=== PATIENT | female | born 1970 | race Caucasian/White ===

== ENCOUNTER 2024-06-21 06:51 | Day surgery (SDC) | payer OTHER, SELFPAY ==
[2024-06-11 13:25] VITALS: BMI 28.1
[2024-06-21] VITALS (11 sets, daily range): BP systolic 110–148; BP diastolic 53–97; BMI 28.1
[2024-06-21] MEDS: NORMOSOL-R 1000 IV (08:56)
[2024-06-21] MEDS: TYLENOL 1000 MG PO (08:56)
--- NOTE | 2024-06-21 10:43 | OR.RPT ---
Operative Report
Operative Report
Primary Surgeon: Kenneth
Assisting: Angelito BLACKMAN
Pre-op Diagnosis: Biliary colic
Post-op Diagnosis: Same
Procedure Performed: Robot assisted laparoscopic cholecystectomy
Anesthesia Type: GETA
Specimen / Cultures: Gallbladder
Estimated Blood Loss: 3cc
Complications: None immediate
Operative Findings: Floppy gallbladder with mild posterior fibrosis; cystic artery: bipolar / cystic duct: double wecks clips; critical view obtained
Date of Surgery:� 06/21/24
Indications: This 54F developed biliary colic with normal liver enzymes and without ductal dilation. Laparoscopic cholecystectomy with robotic assist was elected.
Description of procedure: The patient was placed on the operating table in the supine position. General anesthesia was induced. A time-out was completed verifying correct patient, procedure, site, positioning, and special equipment prior to
beginning this procedure. An orogastric tube was placed. The abdomen was prepped and draped in the usual sterile fashion. A stab incision was made in left upper quadrant and the Veress needle was inserted. Proper position was confirmed by aspiration
and saline meniscus test. The abdomen was insufflated with carbon dioxide to a pressure of 12mmHg. The patient tolerated insufflation well.
A 8mm trocar was then inserted above the umbilicus. The laparoscope was inserted and the abdomen inspected. No injuries from initial trocar placement or Veress needle insertion were noted. Additional 8mm trocars were then inserted in the following
locations: two in the right lower quadrant and to the left of the umbilicus and just above. The abdomen was inspected and no abnormalities were found. The table was placed in the reverse Trendelenburg position with the right side up. The dome of the
gallbladder was grasped with an atraumatic grasper and retracted over the dome of the liver. The infundibulum was then grasped with an atraumatic grasper and retracted toward the right lower quadrant. This maneuver exposed Calot�s triangle. The
peritoneum overlying the gallbladder infundibulum was then incised and the cystic duct and cystic artery identified and circumferentially dissected so that a clear view of the liver was achieved through a window between the cystic duct an cystic
artery. At this time, the only two structures going into the gallbladder were the cystic artery and cystic duct.
The cystic duct was then doubly clipped and divided. The cystic artery was controlled with bipolar and divided. The gallbladder was then dissected from its peritoneal attachments by electrocautery. The gallbladder was removed using an endoscopic
retrieval bag placed through the umbilical port. The gallbladder was passed off the table as a specimen. The gallbladder fossa was closely inspected. There was no evidence of bleeding from the gallbladder fossa or cystic artery or leakage of the
bile from the cystic duct stump. The umbilical trocar site was closed at the fascial level with 2-0 PDS. Secondary trocars were removed under direct vision and noted to be hemostatic. The abdomen was allowed to collapse. The skin was closed with
subcuticular sutures of 4-0 monocryl and topical skin adhesive. The orogastric tube was removed.
The patient tolerated the procedure well and was taken to the postanesthesia care unit in stable condition.
The assistance of Angelito PATEL was required due to the complexity of the procedure. During the procedure she assisted with retraction, resection, and closure of the wound.
[2024-06-21] MEDS: DILAUDID 0.25 MG IV (11:32)
[2024-06-21] MEDS: ZOFRAN 4 MG IV (11:46)
[2024-06-21] MEDS: COMPAZINE 5 MG IV (12:23)
== END 2024-06-21 14:50 | disposition home or self-care (01) ==
LOC: SDS 06:51
PROVIDERS: ATTENDING PHYSICIAN Surgery; FAMILY PHYSICIAN Family Medicine; OTHER PHYSICIAN Psychiatry & Neurology Neurology
DX: K80.10 Calculus of gallbladder with chronic cholecystitis without obstruction (principal)
CPT/HCPCS: 47562; 88304; 93005

== ENCOUNTER 2024-06-26 17:15 | Inpatient (IN) | payer OTHER, SELFPAY ==
[2024-06-26 15:05] VITALS: BP 140/70
[2024-06-26 15:31] VITALS: BMI 28.0
[2024-06-26 15:54] LABS: % Basophils 0.2 % (0-2); % Eosinophils 0.3 % (0-6); % Immature Granulocytes 0.5 % (0-0.5); % Lymphocytes 4.7 % (20.5-51.1); % Monocytes 7.7 % (1.7-9.3); % Neutrophils 86.6 % (42.2-75.2); Absolute Lymphocytes 0.3 10^3/uL (1.2-3.4); Absolute Monocytes 0.5 10^3/uL (0.1-0.6); Absolute Neutrophils 5.2 10^3/uL (1.4-6.5); Hematocrit 39.4 % (37.0-47.0); Hemoglobin 14.1 g/dL (12.0-16.0); Mean Corp Hgb Conc. 35.8 g/dL (33.0-37.0); Mean Corpuscular Hgb 31.3 pg (27.0-31.0); Mean Corpuscular Volume 87.4 fL (81.0-99.0); Mean Platelet Volume 10.3 fL (7.4-10.4); Nucleated Red Blood Cells % 0 %; Platelet Count 255 10^3/uL (130-400); Red Blood Cell Count 4.51 10^6/uL (4.20-5.40); Red Cell Dist. Width 12.3 % (11.5-14.5)
[2024-06-26 16:10] VITALS: BP 126/74
--- NOTE | 2024-06-26 16:10 | ED.GENMED ---
History of Present Illness
General
Chief Complaint: Abdominal Pain
Time Seen by Provider: 06/26/24 16:02
History of Present Illness
History of Present Illness:
Patient is a 54-year-old woman with recent cholecystectomy on June 21 presenting to the emergency department abdominal pain. Patient states that she was recovering well after the surgery until last night. She states that she had loaded fries and
pizza. This morning woke up with epigastric pain nausea vomiting. She been having normal bowel movements. No fevers or chills. No chest pain or difficulty breathing. She is having some suprapubic pain but no urinary symptoms. She discussed
with the on-call surgeon who recommended evaluation here. No alcohol use. No history of pancreatitis. She feels as if her bloating has been improving since her surgery.
Phy Exam
Physical Exam
Physical Exam:
GENERAL: in no acute distress
HEENT: normocephalic, extraocular movements intact, moist oral mucosa
NECK: normal inspection
RESPIRATORY: no respiratory distress, clear to auscultation bilaterally
CARDIOVASCULAR: regular rate and rhythm
ABDOMEN/: soft, non-distended, mild epigastric tenderness to palpation,, no rebound or guarding
EXTREMITIES: non-tender, no edema/swelling
NEUROLOGIC: awake and alert, moves all extremities
SKIN: warm
Course
Orders/Labs/Results
Orders:
Orders
06/26/24 15:41
Complete Blood Count/With Diff Urgent
Comprehensive Metabolic Panel Urgent
Lipase Urgent
06/26/24 16:09
Urinalysis Reflex To Culture Urgent
Date Specimen was Collected: 06/26/24
Time Specimen was Collected: 16:17
06/26/24 16:10
0.9% Sodium Chloride 1000 ml [Nss] 1,000 ml IV BOLUS
Ondansetron Injectable [Zofran] 4 mg IV NOW STA
Abnormal Lab Results
06/26/24
15:41
MCH 31.3 H pg
(27.0-31.0)
Absolute Lymphs (auto) 0.3 L 10^3/uL
(1.2-3.4)
Neutrophils % 86.6 H %
(42.2-75.2)
Lymphocytes % 4.7 L %
(20.5-51.1)
Carbon Dioxide 31 H mmol/L
(22-30)
Glucose 120 H mg/dl
(70-99)
Total Bilirubin 3.4 H mg/dl
(0.2-1.3)
AST 1160 H* U/L
(14-36)
ALT 942 H* U/L
(0-35)
Alkaline Phosphatase 200 H U/L
(38-126)
06/26/24 15:41
06/26/24 15:41
Vital Signs
Initial and Last Documented VS:
Initial Vital Signs
Temp Pulse Resp BP Pulse Ox
98.2 F 72 19 140/70 98
06/26/24 15:05 06/26/24 15:05 06/26/24 15:05 06/26/24 15:05 06/26/24 15:05
Last Documented Vital Signs
Temp Pulse Resp BP Pulse Ox
98.2 F 56 16 140/70 96
06/26/24 15:05 06/26/24 15:45 06/26/24 15:45 06/26/24 15:05 06/26/24 15:45
MDM/Problems Addressed
Differential Diagnosis Includes:
Patient is a 54-year-old woman with recent cholecystectomy June 21 presenting to the emergency department with epigastric pain nausea vomiting. Vitals here are unremarkable and exam does show mild epigastric tenderness. Differential consists of
pancreatitis versus postop complication such as bleeding infection bile leak. Abdomen is soft nondistended so less likely to be perforated viscus. Less likely to be bowel obstruction. Will obtain blood work urine and CT scan. Will give Zofran
and IV fluids. Did offer patient pain medication however she does not want it at this time.
*Critical Care Note
Total Time (30-74mins, 75-104mins- exclusive of procedures): Not Applicable
Update Note
Update Note:
Blood work is notable for transaminitis. Lipase is normal. I did discuss with general surgery who accepted patient to their service. However they will proceed with MRCP. Will discontinue CT scan at this time. Will admit to their service
ED Attending Note
-
Portions of this chart may have been created with voice recognition software.� Occasional wrong word or��sound alike� substitutions may have occurred due to the inherent limitations of voice recognition software.
Discharge Plan
Departure
Patient Disposition: Admit
Date of Disposition: 06/26/24
Time of Disposition: 16:31
Presentation/result/management discussed w/ accepting MD/DO: general surgery
Discharge Problem:
Abdominal pain
Prescriptions:
No Action
multivitamin Tablet
1 tab PO DAILY
lisinopril 20 mg Tablet
20 mg PO DAILY
ascorbic acid (vitamin C) [Vitamin C] 250 mg Tablet
250 mg PO DAILY
cholecalciferol (vitamin D3) 25 mcg (1,000 unit) Tablet
25 mcg PO DAILY Qty: 0
omega 9-xbi-tjw-fish oil [Fish Oil] 300-1,000 mg Capsule
1 cap PO DAILY
Zeposia 0.92 mg Capsule
0.92 mg PO DAILY
oxycodone 5 mg tablet
5 - 10 mg PO Q4HPRN PRN (Reason: moderate to severe pain) Qty: 12 0RF
Patient Comments:
06/26/2024: last filled 06/21/24, 12 tabs for 2 days from [id number]
Referrals:
Que Harris DO [Family Provider] -
Interventions
Interventions:
*Risk Screen - Suicide Last Done: 06/26/24 15:09
*General Assessment Last Done: 06/26/24 15:09
*Neglect/Abuse Screening Last Done: 06/26/24 15:09
ED- Fall Risk Assessment Last Done: 06/26/24 15:48
*ED COVID-19 Vaccine History Last Done: 06/26/24 15:31
HC-Ercrmk-Bntyzgirwx Assessment Last Done: 06/26/24 15:48
Discharge Date and Time
Print Language: FRISIAN
[2024-06-26] MEDS: NSS 1000 IV ×2 (16:14→20:02)
[2024-06-26] MEDS: ZOFRAN 4 MG IV (16:14)
[2024-06-26 16:23] LABS: ALT (SGPT) 942 U/L (0-35); AST (SGOT) 1160 U/L (14-36); Albumin 4.4 g/dl (3.5-5.0); Alkaline Phosphatase 200 U/L (38-126); Blood Urea Nitrogen 14 mg/dl (7-17); Carbon Dioxide 31 mmol/L (22-30); Chloride 100 mmol/L (98-107); Estimated Creatinine Clearance 120 ml/min; Glucose 120 mg/dl (70-99); Lipase 127 U/L (23-300); Potassium 4.3 mmol/L (3.5-5.1); Sodium 136 mmol/L (135-145); Total Bilirubin 3.4 mg/dl (0.2-1.3); eGFR > 60.00
--- NOTE | 2024-06-26 16:29 | HPS.HSE ---
Addendum entered and electronically signed by Luis Rivas MD 06/26/24 17:11:
Patient seen and examined in the emergency department with surgical [facility]. Agree with documented history and physical for admission with additions noted here.
Patient is a 54-year-old female who underwent scheduled cholecystectomy on 06/21/2024 secondary to symptomatic cholelithiasis. Initial postoperative course notable for some mild nausea the first 12 to 24 hours which subsided. She was feeling quite
well to the point that she did have a high-fat meal last night and then awoke this a.m. with rather severe epigastric abdominal pain with persistent nausea and vomiting prompting emergency department evaluation.
Past medical history notable for hypertension, MS, Raynaud's and a thyroid nodule. Past abdominal surgical history only notable for recent cholecystectomy from which she is now postoperative day #5
AFVSS
NAD AAOx3 but mildly uncomfortable appearing secondary to acute illness
ABD: Soft, nondistended, tenderness palpation localizing to the epigastrium but without rebound rigidity or guarding. Surgical sites with localized ecchymosis but no hematomas. No tenderness on palpation of other quadrants of abdomen.
Laboratory testing notable for elevated bilirubin of 3.4, AST 1160, ALT 924 and alkaline phosphatase of 200. Lipase remains normal at 127.
Assessment/plan: 54-year-old female postop day 5 status post robotic cholecystectomy with elevated LFTs suggestive of probable choledocholithiasis
Admit
Obtain MRCP imaging for further evaluation of biliary tree
N.p.o. except ice chips and sips for comfort
IV fluid hydration
Analgesics and antiemetics as needed
Repeat CBC, CMP tomorrow a.m.
Empiric treatment with Zosyn for broad-spectrum biliary coverage as risk for developing cholangitis in the setting of presumed obstructing choledocholithiasis (pending MRI imaging for confirmation)
GI consultation -as anticipating high likelihood for need for ERCP pending MRI results
Holding home medicines including Zeposia as may affect LFTs
Reviewed surgical impression and plan in detail with patient and her at bedside. Any of their concerns or questions were fully addressed.
Original Note:
Family Physician
-
Family Physician: Que Harris
Chief Complaint
-
N/V/Abdominal pain
History of Present Illness
Ms Ricks is a 54 yo female with a h/o MS who is s/p RAL cholecystectomy on 06/21/[address] Cooper on a scheduled outpatient basis. She was initially doing quite well and was eating her normal diet and tolerating it well after surgery. She had a
high fat meal last night without discomfort at the time. She awoke this am with epigastric pain with nausea and vomiting which persisted throughout the morning. She presented for further evaluation. She denies fevers or chills. Incisions healing
well with ecchymosis present.
Medical History
Past Medical History
Past Medical History: Reports HTN and Other (MS, Raynaud's, thyroid nodule)
Past Surgical History: Reports Cholecystectomy (06/21/24)
Social History
Tobacco: Non-smoker
Alcohol: None
Family History
Family History: Not pertinent
Allergies / Home Medications
Allergies reflects when Allergies were last updated in [facility].
Home Medications with original date entered in [facility]
Allergy/Medication List:
Patient Allergies
Allergy/AdvReac Type Severity Reaction Status Date / Time
No Known Allergies Allergy Verified 06/26/24 15:05
�Medication �Instructions �Recorded �Confirmed �Type
ascorbic acid (vitamin C) 250 mg 250 mg PO DAILY 06/17/24 06/26/24 History
tablet (Vitamin C)
cholecalciferol (vitamin D3) 25 25 mcg PO DAILY ##0 06/17/24 06/26/24 History
mcg (1,000 unit) tablet
lisinopril 20 mg tablet 20 mg PO DAILY 06/17/24 06/26/24 History
multivitamin 1 tab PO DAILY 06/17/24 06/26/24 History
omega 7-lot-ayv-fish oil 300 1 cap PO DAILY 06/17/24 06/26/24 History
mg-1,000 mg capsule (Fish Oil)
ozanimod 0.92 mg capsule (Zeposia) 0.92 mg PO DAILY 06/17/24 06/26/24 History
oxycodone 5 mg tablet 5 - 10 mg (1 - 2 x 5 mg) PO Q4HPRN 06/21/24 06/26/24 Rx
PRN moderate to severe pain #12
tabs
Review of Systems
-
History Source: Patient
A 12 point ROS was completed and negative except as noted: Yes
Physical Exam
Vital Signs
Vital Signs
Temp Pulse Resp BP Pulse Ox
98.2 F 56 16 140/70 96
06/26/24 15:05 06/26/24 15:45 06/26/24 15:45 06/26/24 15:05 06/26/24 15:45
Physical Exam
General: Well Developed and Well Nourished
HEENT: Moist mucous membranes
Respiratory: Non Labored Respirations
GI: Soft, Non Distended, Tender (epigastric area) and Other
Skin: Warm, Dry and Other (incisions with intact glue, well approximated. Ecchymosis present without erythema)
Neuro: Awake, Alert and AO x 3
Psych: Calm
Laboratory Results
-
06/26/24 15:41
06/26/24 15:41
Laboratory Results
Total Bilirubin 3.4 mg/dl (0.2-1.3) H 06/26/24 15:41
AST 1160 U/L (14-36) H* 06/26/24 15:41
ALT 942 U/L (0-35) H* 06/26/24 15:41
Alkaline Phosphatase 200 U/L (38-126) H 06/26/24 15:41
Lipase 127 U/L (23-300) 06/26/24 15:41
Data Reviewed
-
Lab Data: Labs Reviewed by me, Discussed with Physician and Discussed with Patient
Old Records: Reviewed
Impression/Plan
-
IMPRESSION: 54 yo female with h/o HTN/MS s/p RAL cholecystectomy on 06/21/[address] Cooper presenting with acute onset of n/v/epigastric pain this am. LFT's elevated with normal lipase. No leukocytosis. AFVSS. Suspect choledocholithiasis.
PLAN:
Check MRCP and follow LFT's. Anticipate she will need ERCP; will consult GI to follow with us
NPO except sips of clears
Start IV abx empirically
IVF while NPO
Analgesics/antiemetics prn
Hold Zeposia until LFT's return to baseline
Lovenox for VTE ppx
[2024-06-26 16:45] LABS: Urine Albumin Negative (Neg - Trace); Urine Bilirubin Negative (Negative); Urine Character Clear (Clear); Urine Color Yellow; Urine Glucose Negative (Negative); Urine Ketone Negative (Negative); Urine Leukocyte Trace (Negative); Urine Nitrite Negative (Negative); Urine Occult Blood Negative (Negative); Urine Urobilinogen 3+ (Neg - 1+)
[2024-06-26 16:55] LABS: Urine Amorphous Seen
[2024-06-26 16:56] LABS: Urine Mucus Few; Urine Red Blood Cell 0-2 /HPF (0-2); Urine White Cell 0-2 /HPF (0-5)
[2024-06-26] MEDS: TORADOL 10 MG IV (17:57)
[2024-06-26 18:00] VITALS: BP 137/77
[2024-06-26 18:43] VITALS: BP 135/72
[2024-06-26 19:18] VITALS: BMI 27.7
[2024-06-26] MEDS: LOVENOX 40 MG SC (20:00)
[2024-06-26] MEDS: ZOSYN 50 IV (20:02)
[2024-06-26] MEDS: DILAUDID 0.25 MG IV (21:21)
--- NOTE | 2024-06-26 21:38 | PTCARENOTE ---
Received pt at change of shift w dx of obstructing cholelithiasis. Pt is AAOx3, able to make all needs known, independent in room, VSS. No c/o n/v. Stated pain was constant 5/10 throughout abdomen. Medicated appropriately. Pt made aware of plans for
MRCP on Friday. Call parra within reach, bed in lowest position, assessment ongoing.
[2024-06-26 23:00] VITALS: BP 129/70
[2024-06-27] MEDS: ZOSYN 50 IV ×4 (02:11→20:00)
[2024-06-27] MEDS: NSS 1000 IV ×2 (05:16→16:06)
[2024-06-27 07:20] VITALS: BP 112/59
[2024-06-27] MEDS: PROTONIX IV 40 MG IV (07:41)
--- NOTE | 2024-06-27 08:05 | CON.GI ---
Addendum entered and electronically signed by Bin Santos MD 06/27/24 14:08:
Addendum:
Patient had loaded fries and pizza the night before the pain and n/v started next am.
Denies f/c, dark urine, damien colored stool, jaundice.
Mom with gallstones.
PE:
Scleral icterus
RRR
CTA b/l
Abd tender no r/g
AAOX3
Original Note:
Consultation
-
Date/Time Consultation Requested: 06/27/2024, 7pm
Date/Time Consultation Performed: 06/27/2024, 9am
Requesting Provider: Dr. Rivas
Performing Provider: Dr. Santos
Reason for Consultation: suspected choledocho
Medical History
Chief Complaint / HPI
Chief Complaint: pain, n/v
History of Present Illness:
54-year-old female with recent CCY with Dr. Cooper on 06/21/2024 secondary to symptomatic cholelithiasis. Had a high fat meal night of 06/25 then had n/v/epigastric pain.
She came into the emergency room and was found to have a bilirubin of 3.4, repeat this morning is 5. AST was 1160, repeat today 347, ALT 9 42, repeat today 623, alk phos 200, repeat today at 193. Other blood work significant for no leukocytosis,
no fever. I discussed with surgery last night and they have ordered an MRI.
Past Medical History
Past Medical History: HTN and Other (MS, Raynaud's, thyroid nodule)
Past Surgical History: Cholecystectomy
Social History
Tobacco: Non-Smoker
Alcohol: None
Family History
Family History: Reviewed & Not Pertinent
Allergies / Home Medications
Allergy/AdvReac Type Severity Reaction Status Date / Time
No Known Allergies Allergy Verified 06/26/24 15:05
�Medication �Instructions �Recorded
ascorbic acid (vitamin C) 250 mg 250 mg PO DAILY 06/17/24
tablet (Vitamin C)
cholecalciferol (vitamin D3) 25 25 mcg PO DAILY ##0 06/17/24
mcg (1,000 unit) tablet
lisinopril 20 mg tablet 20 mg PO DAILY 06/17/24
multivitamin 1 tab PO DAILY 06/17/24
omega 6-gsz-uts-fish oil 300 1 cap PO DAILY 06/17/24
mg-1,000 mg capsule (Fish Oil)
ozanimod 0.92 mg capsule (Zeposia) 0.92 mg PO DAILY 06/17/24
oxycodone 5 mg tablet 5 - 10 mg (1 - 2 x 5 mg) PO Q4HPRN 06/21/24
PRN moderate to severe pain #12
tabs
Review of Systems
-
All other systems: A 12 pt ROS was Negative except as stated above in HPI
Vital Signs
Temp Pulse Resp BP Pulse Ox
98 F 55 16 112/59 92
06/27/24 07:20 06/27/24 07:20 06/27/24 07:20 06/27/24 07:20 06/27/24 07:20
Physical Exam
Results
WBC 6.0 10^3/uL (4.8-10.8) 06/26/24 15:41
Hgb 14.1 g/dL (12.0-16.0) 06/26/24 15:41
Hct 39.4 % (37.0-47.0) 06/26/24 15:41
MCV 87.4 fL (81.0-99.0) 06/26/24 15:41
Plt Count 255 10^3/uL (130-400) 06/26/24 15:41
Absolute Neuts (auto) 5.2 10^3/uL (1.4-6.5) 06/26/24 15:41
Sodium 136 mmol/L (135-145) 06/26/24 15:41
Potassium 4.3 mmol/L (3.5-5.1) 06/26/24 15:41
Chloride 100 mmol/L (98-107) 06/26/24 15:41
Carbon Dioxide 31 mmol/L (22-30) H 06/26/24 15:41
BUN 14 mg/dl (7-17) 06/26/24 15:41
Creatinine 0.6 mg/dL (0.6-1.0) 06/26/24 15:41
Calcium 10.0 mg/dl (8.4-10.2) 06/26/24 15:41
Total Bilirubin 3.4 mg/dl (0.2-1.3) H 06/26/24 15:41
AST 1160 U/L (14-36) H* 06/26/24 15:41
ALT 942 U/L (0-35) H* 06/26/24 15:41
Alkaline Phosphatase 200 U/L (38-126) H 06/26/24 15:41
Lipase 127 U/L (23-300) 06/26/24 15:41
Diagnostic Image Results:
Prior GI Procedures:
EGD:
Colonoscopy:
Assessment / Plan
-
54 yo F with recent CCY here with abd pain, n/v, elevated LFTs including rising bili.
Suspect choledocholithiasis.
Recommendations:
- MRI/MRCP today done pending read
- Likely ERCP tomorrow with Dr. Leone - risks including bleeding, infection, perforation, pancreatitis
- Can do clears after MRI and NPO after midnight
- Trend LFTs, CBC
D/w surgery
-
-
Thank you for consultation and allowing me to participate in the patient's care. Please call the corrosion control fitter GI physician during the after hours with any questions or concerns.
[2024-06-27] MEDS: ZESTRIL 20 MG PO (08:20)
[2024-06-27 08:24] LABS: Hematocrit 33.4 % (37.0-47.0); Hemoglobin 11.6 g/dL (12.0-16.0); Mean Corp Hgb Conc. 34.7 g/dL (33.0-37.0); Mean Corpuscular Hgb 31.2 pg (27.0-31.0); Mean Corpuscular Volume 89.8 fL (81.0-99.0); Mean Platelet Volume 10.4 fL (7.4-10.4); Platelet Count 212 10^3/uL (130-400); Red Blood Cell Count 3.72 10^6/uL (4.20-5.40); Red Cell Dist. Width 12.8 % (11.5-14.5); White Blood Cell Count 4.9 10^3/uL (4.8-10.8)
--- NOTE | 2024-06-27 08:34 | W.PN.GS2 ---
Addendum entered and electronically signed by Luis Rivas MD 06/27/24 09:10:
Patient seen and examined with nurse practitioner. Agree with documented progress note.
Overall feeling better from an acute abdominal pain standpoint. Nausea has subsided as well. No vomiting.
Urine remains quite dark
No bowel movements
Skin now a bit yellow
AFVSS
NAD AAOx3; scleral icterus/jaundiced
A.m. labs notable for further rise in bilirubin 5.0, AST ALT and alkaline phosphatase improved. No leukocytosis
Assessment/plan: 54-year-old female POD #6 status post scheduled robotic cholecystectomy for symptomatic cholelithiasis
Readmitted postoperatively for obstructive jaundice due to presumed choledocholithiasis; no clinical signs of cholangitis
MRCP pending to confirm
Pending MRI results anticipate need for ERCP - GI consulted
Continue supportive care including n.p.o. except sips/chips, IVF's, as needed analgesics/antiemetics, and Zosyn for biliary coverage due to obstructive jaundice
Original Note:
Today's Communication / Plan
-
MRCP
Assessment / Plan
-
54-year-old female POD #6 robotic cholecystectomy with elevated LFTs suggestive of probable choledocholithiasis
AFVSS
No further n/v overnight
Leukocytosis resolved
Mild acute anemia noted, suspect hemodilution s/p fluid resuscitation
LFT's for today pending, mild jaundice noted
Plan:
--MRCP today
--GI consult pending
--N.p.o. with sips, ok for CLD after MRI
--IV fluid hydration
--Analgesics and antiemetics as needed
--follow labs
--Empiric treatment with Zosyn for broad-spectrum biliary coverage as risk for developing cholangitis in the setting of presumed obstructing choledocholithiasis (pending MRI imaging for confirmation)
--Holding home medicines including Zeposia as may affect LFTs
Subjective Data
-
Date of Service: June 27, 2024
Patient seen and examined at bedside with Dr. Rivas. Denies n/v. No pain. Notes her urine is quite dark.
Objective Data
-
Intake and Output
06/26/24 06/27/24 06/28/24
06:59 06:59 06:59
Intake Total 1140 / 1140
Balance 1140 / 1140
Intake:
IV fluids (Total) 1040 / 1040
IV piggybacks 100 / 100
Other:
Number of approximated SMALL 4
amounts of urine
Vital Signs
Temp Pulse Resp BP Pulse Ox
98 F 58 16 118/67 92
06/27/24 07:20 06/27/24 08:20 06/27/24 07:20 06/27/24 08:20 06/27/24 07:20
Lab Results
06/27/24 07:32
Calcium 10.0 mg/dl (8.4-10.2) 06/26/24 15:41
Total Bilirubin 3.4 mg/dl (0.2-1.3) H 06/26/24 15:41
AST 1160 U/L (14-36) H* 06/26/24 15:41
ALT 942 U/L (0-35) H* 06/26/24 15:41
Alkaline Phosphatase 200 U/L (38-126) H 06/26/24 15:41
Total Protein 7.0 g/dl (6.3-8.2) 06/26/24 15:41
Albumin 4.4 g/dl (3.5-5.0) 06/26/24 15:41
Physical Exam
-
NAD
ABD soft, nt, nd. Incisions with ecchymosis but intact without erythema
Skin with mild jaundice
[2024-06-27 09:00] LABS: ALT (SGPT) 623 U/L (0-35); AST (SGOT) 347 U/L (14-36); Albumin 3.5 g/dl (3.5-5.0); Alkaline Phosphatase 193 U/L (38-126); Blood Urea Nitrogen 12 mg/dl (7-17); Calcium 8.9 mg/dl (8.4-10.2); Carbon Dioxide 28 mmol/L (22-30); Chloride 107 mmol/L (98-107); Estimated Creatinine Clearance 80 ml/min; Glucose 103 mg/dl (70-99); Potassium 4.2 mmol/L (3.5-5.1); Sodium 137 mmol/L (135-145); Total Protein 5.7 g/dl (6.3-8.2); eGFR > 60.00
[2024-06-27] MEDS: ATIVAN 0.5 MG IV (09:23)
[2024-06-27] MEDS: NSS (PRESERVATIVE FREE) 0.25 ML IV (10:26)
--- NOTE | 2024-06-27 11:30 | CM ---
Reviewed the chart notes and spoke with the patient at the bedside. The patient resides with her spouse in a two story home with one step to enter. The patient reports no DME/VN/SNF in the past. The patient confirmed her pharmacy of choice is the
[facility] [address]. The patient anticipates being discharged to home with no anticipated needs. CM continues to be available to patient/family and is monitoring medical plan for needs at discharge.
Plan: Discharge to home when medically stable.
[2024-06-27 11:37] LABS: Direct Bilirubin 3.4 mg/dl (0.0-0.4)
[2024-06-27 15:05] VITALS: BP 124/73
--- NOTE | 2024-06-27 17:04 | W.PN.UPDATE ---
Update Note
Progress Note Update
MRCP neg for stone
d/w Dr. Rivas high suspicion for stone given bili (which I agree with) - also needs ERCP to r/o bile duct leak
I sent a message to d/w Dr. Leone
I updated pt
[2024-06-27] MEDS: LOVENOX 40 MG SC (18:10)
[2024-06-27 23:00] VITALS: BP 140/77
[2024-06-28] MEDS: NSS 1000 IV (01:37)
[2024-06-28] MEDS: ZOSYN 50 IV (01:37)
--- NOTE | 2024-06-28 06:12 | PTCARENOTE ---
Pt slept well overnight. Pt awake and ambulating in hallway early this am with at her side. pt reports pain at tolerable level. IVF infusing as ordered. vital signs stable. Will continue to monitor.
[2024-06-28 07:06] VITALS: BP 174/81
[2024-06-28 07:16] LABS: Hematocrit 33.6 % (37.0-47.0); Hemoglobin 11.5 g/dL (12.0-16.0); Mean Corp Hgb Conc. 34.2 g/dL (33.0-37.0); Mean Corpuscular Hgb 31.3 pg (27.0-31.0); Mean Corpuscular Volume 91.6 fL (81.0-99.0); Mean Platelet Volume 10.6 fL (7.4-10.4); Platelet Count 192 10^3/uL (130-400); Red Blood Cell Count 3.67 10^6/uL (4.20-5.40); Red Cell Dist. Width 12.7 % (11.5-14.5); White Blood Cell Count 3.7 10^3/uL (4.8-10.8)
[2024-06-28 08:02] LABS: ALT (SGPT) 386 U/L (0-35); AST (SGOT) 126 U/L (14-36); Albumin 3.5 g/dl (3.5-5.0); Alkaline Phosphatase 177 U/L (38-126); Blood Urea Nitrogen 9 mg/dl (7-17); Calcium 9.3 mg/dl (8.4-10.2); Carbon Dioxide 24 mmol/L (22-30); Chloride 109 mmol/L (98-107); Direct Bilirubin 0.9 mg/dl (0.0-0.4); Estimated Creatinine Clearance 91 ml/min; Glucose 96 mg/dl (70-99); Potassium 4.1 mmol/L (3.5-5.1); Sodium 138 mmol/L (135-145); Total Bilirubin 2.2 mg/dl (0.2-1.3); Total Protein 5.8 g/dl (6.3-8.2); eGFR > 60.00
[2024-06-28] MEDS: PROTONIX IV 40 MG IV (08:05)
[2024-06-28] MEDS: ZESTRIL 20 MG PO (08:06)
--- NOTE | 2024-06-28 10:44 | W.PN.GS2 ---
Today's Communication / Plan
-
HIDA scan. If final read is negative anticipate discharge home later today versus tomorrow.
Assessment / Plan
-
54-year-old female POD #7 robotic cholecystectomy with elevated LFTs suggestive of probable choledocholithiasis, however MRI negative. Today bilirubin has resolved and preliminary HIDA scan on my read looks negative for any leak.
Appreciate GI recs, I do not anticipate ERCP will be necessary.
Will advance diet and plan for discharge home later today versus tomorrow.
Will plan for outpatient lab work to ensure resolution of her liver abnormalities.
All questions answered, patient agreeable to plan of care above.
Time Spent
Total Time Spent with Patient (in minutes): 20
Subjective Data
-
Date of Service: June 28, 2024
Interval Events:
No acute events overnight. Slept well. Pain Controlled. Denies Nausea/Vomiting, +bowel function.
Objective Data
-
Intake and Output
06/27/24 06/28/24 06/29/24
06:59 06:59 06:59
Intake Total 1140 / 1140 3450 / 3450
Balance 1140 / 1140 3450 / 3450
Intake:
Oral fluids 900 / 900
IV fluids (Total) 1040 / 1040 2450 / 2450
IV piggybacks 100 / 100 100 / 100
Other:
Number of approximated SMALL 4
amounts of urine
Number of approximated MODERATE 1
amounts of urine
Vital Signs
Temp Pulse Resp BP Pulse Ox
97.9 F 62 16 174/81 97
06/28/24 07:06 06/28/24 07:06 06/28/24 07:06 06/28/24 07:06 06/28/24 07:06
Lab Results
06/28/24 06:41
06/28/24 06:41
Calcium 9.3 mg/dl (8.4-10.2) 06/28/24 06:41
Total Bilirubin 2.2 mg/dl (0.2-1.3) H D 06/28/24 06:41
Direct Bilirubin 0.9 mg/dl (0.0-0.4) H 06/28/24 06:41
AST 126 U/L (14-36) H 06/28/24 06:41
ALT 386 U/L (0-35) H 06/28/24 06:41
Alkaline Phosphatase 177 U/L (38-126) H 06/28/24 06:41
Total Protein 5.8 g/dl (6.3-8.2) L 06/28/24 06:41
Albumin 3.5 g/dl (3.5-5.0) 06/28/24 06:41
Physical Exam
-
GENERAL/NEURO: Awake, Alert, no distress
CHEST: Unlabored breathing on RA
ABDOMEN: Soft, Non-Tender, Non-Distended, incisions clean dry and intact.
--- NOTE | 2024-06-28 10:54 | W.PN.GI.CBS2 ---
Addendum entered and electronically signed by Bin Santos MD 06/28/24 12:47:
no role for ercp at this time
Addendum entered and electronically signed by Bin Santos MD 06/28/24 12:47:
I saw and evaluated the patient. I reviewed the resident�s note and agree with findings and plan as documented in the resident�s note.
54 yo female recent CCY p/w abd pain, n/v, elevated LFTs underwent MRCP which was negative and then HIDA done this AM negative.
I d/w surgery and our biliary team.
TB improved, pain improved.
Likely passed stone.
Plan for trial of low fat diet if tolerates well plan for dc today.
LFTs repeat as outpatient.
Original Note:
Today's Communication / Plan
-
advance diet- may be discharged if tolerates diet
Assessment / Plan
-
54 yo F with recent cholecystectomy (06/21) here with abdominal pain, n/v, elevated LFTs.
T Bili has decreased to 2.2 (direct: 0.9). LFTs improving.
# Possible choledocholithiasis. R/O biliary leak
Recommendations:
- MRCP negative
- HIDA scan done this a.m.
- Holding ERCP for now
- Continue to trend LFTs, CBC
- Appreciate surgery team
Subjective
Subjective
Date of Service: June 28, 2024
Objective
Data Reviewed
Laboratory Data:
Laboratory Results
06/28/24 06:41
06/28/24 06:41
Laboratory Results
Total Bilirubin 2.2 mg/dl (0.2-1.3) H D 06/28/24 06:41
AST 126 U/L (14-36) H 06/28/24 06:41
ALT 386 U/L (0-35) H 06/28/24 06:41
Alkaline Phosphatase 177 U/L (38-126) H 06/28/24 06:41
Lipase 127 U/L (23-300) 06/26/24 15:41
Vital Signs and I&O:
Vital Signs
Temp Pulse Resp BP Pulse Ox
97.9 F 62 16 174/81 97
06/28/24 07:06 06/28/24 07:06 06/28/24 07:06 06/28/24 07:06 06/28/24 07:06
I&O
06/27/24 06/28/24 06/29/24
06:59 06:59 06:59
Intake Total 1140 / 1140 3450 / 3450
Balance 1140 / 1140 3450 / 3450
[2024-06-28] MEDS: TORADOL 10 MG IV (12:39)
[2024-06-28] MEDS: NSS IV (12:54)
[2024-06-28] MEDS: ZOSYN IV (13:01)
--- NOTE | 2024-06-28 13:18 | W.DCSUMMARY ---
Discharge Summary
Discharge Data
Date of Admission: 06/26/24
Date of Discharge: 06/28/24
-
Pending Results: No
Hospital Course
Ms Ricks is a 54 yo female who recently underwent a RAL cholecystectomy who presented on post operative day 5 with epigastric pain with nausea and vomiting that began hours after a high fat meal. She had noted rise in LFT's and was admitted for
observation. LFT's continued to rise on her first hospital day despite resolution of pain. On her second hospital day, jaundice resolved and LFT's trended down. Lipase was not elevated. An MRCP was preformed without choledocholithiasis present. HIDA
scan was done in follow up as well without evidence of biliary leak. She was followed by gastroenterology during the course of her stay with decision not to pursue additional testing with ERCP given her improvement in labs, symptoms and negative
testing. Suspect passage of retained stone as etiology of her rise in LFT's and pain. She remained asymptomatic with dietary advancement and was discharged to home with plan for follow up labs later this week and subsequent follow up with her
primary surgeon.
Discharge Plan
-
Patient Disposition: Home (Routine Discharge)
Discharge Diagnosis/Procedures: jaundice, post op pain
Condition: Good
Diet: Low Fat
Activity: As tolerated
Additional Activity: Do not lift over 15-20lbs for the next 2 weeks
Bathing Restrictions: OK to Shower
Blood Work: CMP in 3-5 days prior to your surgical follow up
Wound Care: Allow the glue over your incisions to flake off on their own in 2-3 weeks, avoid scrubbing off
Activity Restrictions/Additional Instructions:
Call your surgeon if you develop yellowing of the eyes or skin, worsening pain or nausea with vomiting
Referrals:
Que Harris DO [Family Provider] -
Davon Cooper MD [Active] - (As previously scheduled. Have labs done before appointment)
Prescriptions:
Continued
multivitamin Tablet
1 tab PO DAILY
lisinopril 20 mg Tablet
20 mg PO DAILY
ascorbic acid (vitamin C) [Vitamin C] 250 mg Tablet
250 mg PO DAILY
cholecalciferol (vitamin D3) 25 mcg (1,000 unit) Tablet
25 mcg PO DAILY Qty: 0
omega 4-ppe-fck-fish oil [Fish Oil] 300-1,000 mg Capsule
1 cap PO DAILY
Zeposia 0.92 mg Capsule
0.92 mg PO DAILY
oxycodone 5 mg tablet
5 - 10 mg PO Q4HPRN PRN (Reason: moderate to severe pain) Qty: 12 0RF
Patient Comments:
06/26/2024: last filled 06/21/24, 12 tabs for 2 days from [facility][id number]
Discharge Orders:
Discharge Patient (As Directed); Ordered 06/28/24
Ordered By: Aviva Voss
Discharge Date and Time
Print Language: UZBEK
--- NOTE | 2024-06-28 15:00 | CM ---
Patient seen at bedside with today. Plan is for discharge home today. patient with no needs. CM will continue to follow for discharge planning needs.
Plan; home with no needs.
[2024-06-28 15:10] VITALS: BP 152/73
--- NOTE | 2024-06-28 16:06 | PTCARENOTE ---
Addendum entered by Mavis Eaton RN 06/28/24 16:12:
Called to patient to confirm that she should start medication tomorrow.
Original Note:
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 Mk texted Aviva Voss who confirmed athat patient should resume tomorrow.
== END 2024-06-28 16:21 | disposition home or self-care (01) | DRG 948 ==
LOC: 2 SOUTH 17:15
PROVIDERS: ADMITTING PHYSICIAN Surgery; CONSULT PHYSICIAN Internal Medicine Gastroenterology; EMERGENCY PHYSICIAN Student in an Organized Health Care Education/Training Program; FAMILY PHYSICIAN Family Medicine
DX: G89.18 Other acute postprocedural pain (principal)
CPT/HCPCS: 74183; 78226; 80053; 81003; 81015; 82248; 83690; 85025; 85027; 96361; 96374; 99285; A9537; A9575